=== PATIENT | male | born 1955 | race Caucasian/White ===

== ENCOUNTER → 2021-03-22 | Outpatient (CLI) | payer MEDICARE, OTHER | LOC: KOH-I 10:32 | DX: M25.512 Pain in left shoulder (principal) | CPT/HCPCS: 73030 ==

== ENCOUNTER → 2021-09-06 | Outpatient (CLI) | payer MEDICARE, OTHER | LOC: RAD 08:43 | DX: M25.512 Pain in left shoulder (principal); R53.1 Weakness | CPT/HCPCS: 73040; 73200; Q9967 ==